=== PATIENT | male | born 1940 | race Caucasian/White ===

== ENCOUNTER 2018-03-03 20:17 | Outpatient (REF) | payer MEDICARE, SELFPAY ==
[2018-03-03 22:10] LABS: Digoxin 0.74 ng/mL (0.90-2.00)
== END 2018-03-03 20:18 ==
LOC: NCHCN 20:17
PROVIDERS: PCP Internal Medicine; Visit Provider Family Medicine
DX: I48.91 Unspecified atrial fibrillation (principal); Z79.899 Other long term (current) drug therapy
CPT/HCPCS: 80162

== ENCOUNTER → 2018-05-14 12:31 | Outpatient (BNVA) | payer MEDICARE, SELFPAY | PROVIDERS: PCP Internal Medicine; Visit Provider Internal Medicine Cardiovascular Disease | DX: I48.2 Chronic atrial fibrillation (principal); Z95.2 Presence of prosthetic heart valve; I42.9 Cardiomyopathy, unspecified; G47.33 Obstructive sleep apnea (adult) (pediatric); I08.2 Rheumatic disorders of both aortic and tricuspid valves; E11.9 Type 2 diabetes mellitus without complications; Z79.84 Long term (current) use of oral hypoglycemic drugs; I10 Essential (primary) hypertension | CPT/HCPCS: 99214 ==

== ENCOUNTER 2018-07-15 10:35 | Outpatient (REF) | payer MEDICARE, SELFPAY ==
[2018-07-15 21:45] LABS: Abs Immature Grans 0.02 k/cumm (0.0-0.09); Absolute Basophil Count 0.02 k/cumm (0.0-0.2); Absolute Eosinophil Count 0.16 k/cumm (0.0-0.7); Absolute Lymphocyte Count 0.96 k/cumm (1.2-3.4); Absolute Monocyte Count 0.58 k/cumm (0.11-0.7); Absolute Neutrophil Count 4.62 k/cumm (1.2-6.7); Basophils % 0.3; Eosinophils % 2.5; HCT 35.9 % (40.0-50.0); HGB 11.2 g/dL (13.5-17.5); Immature Grans % 0.3; Lymphocytes % 15.1; Mean Corp. HGB Concentration 31.2 g/dL (32.0-36.0); Mean Corpuscular Hemoglobin 28.7 pg (27.0-33.0); Mean Corpuscular Volume 92.1 fL (80-95); Mean Platelet Volume 12.3 fL (8.0-11.0); Monocytes % 9.1; Neutrophils % 72.7; Platelet Count 173 x1000/uL (130-400); White Blood Cell Count 6.36 k/cumm (4.4-10.8)
[2018-07-15 21:51] LABS: ALT 15 U/L (12-78); AST 13 U/L (15-37); Albumin 3.6 g/dL (3.4-5.0); Alkaline Phosphatase 115 U/L (46-116); Anion Gap 9.5 mmol/L (3-11); BUN 39 mg/dL (7-18); Bilirubin, Total 0.3 mg/dL (0.2-1.0); CO2 28.5 mmol/L (21.0-32.0); CREATININE 2.72 mg/dL (0.70-1.30); Calcium 8.5 mg/dL (8.5-10.1); Chloride 104 mmol/L (98-107); Estimated GFR 22.77 (mL/min/1.73m2); Glucose 118 mg/dL (70-100); Potassium 4.5 mmol/L (3.5-5.1); Sodium 142 mmol/L (136-145); Total Protein 7.2 g/dL (6.4-8.2)
[2018-07-15 22:37] LABS: Prothrombin Time 61.5 sec (9.3-11.0)
== END 2018-07-15 10:55 ==
LOC: NCHCN 10:35
PROVIDERS: PCP Internal Medicine; Visit Provider Internal Medicine
DX: C34.11 Malignant neoplasm of upper lobe, right bronchus or lung (principal); I48.91 Unspecified atrial fibrillation; Z79.01 Long term (current) use of anticoagulants; G31.84 Mild cognitive impairment of uncertain or unknown etiology
CPT/HCPCS: 80053; 85025; 85610

== ENCOUNTER 2018-07-19 10:44 | Outpatient (CLI) | payer MEDICARE, SELFPAY ==
[2018-07-19 11:19] LABS: INR 1.8 (1.0-3.5); Prothrombin Time 18.3 sec (9.3-11.0)
== END 2018-07-19 11:04 ==
PROVIDERS: PCP Internal Medicine; Visit Provider Internal Medicine
DX: I48.91 Unspecified atrial fibrillation (principal); Z79.01 Long term (current) use of anticoagulants
CPT/HCPCS: 36415; 85610

== ENCOUNTER 2018-07-20 16:02 | Outpatient (REF) | payer MEDICARE, SELFPAY ==
[2018-07-20 21:13] LABS: Bilirubin Negative (Negative); Blood Small (Negative); Clarity Clear; Glucose Negative (Negative); Ketones Negative (Negative); Leukocyte Esterase Negative (Negative); Nitrite Negative (Negative); Specific Gravity 1.025 (1.005-1.025); Urobilinogen 0.2 EU/dL (Up TO 0.2); pH 5.5 (5-8)
[2018-07-20 21:27] LABS: Anion Gap 8.3 mmol/L (3-11); BUN 38 mg/dL (7-18); CO2 30.7 mmol/L (21.0-32.0); CREATININE 2.84 mg/dL (0.70-1.30); Calcium 8.9 mg/dL (8.5-10.1); Chloride 102 mmol/L (98-107); Estimated GFR 21.67 (mL/min/1.73m2); Glucose 93 mg/dL (70-100); Potassium 4.4 mmol/L (3.5-5.1); Sodium 141 mmol/L (136-145)
[2018-07-20 21:46] LABS: COMMENT (LAB VIEW ONLY) 73.03 mg/dL
[2018-07-20 21:55] LABS: WBC 0-2 HPF (0-5)
[2018-07-20 21:56] LABS: Bacteria Rare HPF (Negative); Crystals Negative HPF (Negative); Epithelial Cells Rare HPF (Negative); Mucus Trace (Negative); Other Cells Rare Yeast (Negative); RBC 0-2 (0-2)
[2018-07-20 21:57] LABS: C & S Indicated? Yes; Casts 0-2 Hyaline LPF (Negative)
== END 2018-07-20 16:22 ==
LOC: NCHCN 16:02
PROVIDERS: PCP Internal Medicine; Visit Provider Internal Medicine
DX: I10 Essential (primary) hypertension (principal); N18.9 Chronic kidney disease, unspecified
CPT/HCPCS: 80048; 81003; 81015; 82043; 82570; 87086

== ENCOUNTER 2018-08-05 11:29 | Outpatient (REF) | payer MEDICARE, SELFPAY ==
[2018-08-05 22:24] LABS: PROTEIN 384.4 mg/dL
[2018-08-05 22:25] LABS: COMMENT (LAB VIEW ONLY) 90.59 mg/dL; Prot/Crea Ur Ratio 4.24
== END 2018-08-05 11:49 ==
LOC: NCHCN 11:29
PROVIDERS: PCP Internal Medicine; Visit Provider Internal Medicine
DX: N18.4 Chronic kidney disease, stage 4 (severe) (principal)
CPT/HCPCS: 82565; 84156

== ENCOUNTER 2018-10-07 12:10 | Outpatient (REF) | payer MEDICARE, SELFPAY ==
[2018-10-07 22:16] LABS: TSH (W/Ref FT4) 0.56 uIU/mL (0.358-3.74)
== END 2018-10-07 12:30 ==
LOC: NCHCN 12:10
PROVIDERS: PCP Internal Medicine; Visit Provider Internal Medicine
DX: I10 Essential (primary) hypertension (principal); I48.91 Unspecified atrial fibrillation; K59.00 Constipation, unspecified
CPT/HCPCS: 84443

== ENCOUNTER 2018-10-15 21:46 | Outpatient (REF) | payer MEDICARE, SELFPAY ==
[2018-10-15 22:01] LABS: Abs Immature Grans 0.03 k/cumm (0.0-0.09); Absolute Basophil Count 0.01 k/cumm (0.0-0.2); Absolute Eosinophil Count 0.11 k/cumm (0.0-0.7); Absolute Lymphocyte Count 0.58 k/cumm (1.2-3.4); Absolute Monocyte Count 0.57 k/cumm (0.11-0.7); Absolute Neutrophil Count 5.29 k/cumm (1.2-6.7); Basophils % 0.2; Eosinophils % 1.7; HCT 32.8 % (40.0-50.0); Immature Grans % 0.5; Lymphocytes % 8.8; Mean Corp. HGB Concentration 30.5 g/dL (32.0-36.0); Mean Corpuscular Hemoglobin 26.4 pg (27.0-33.0); Mean Corpuscular Volume 86.5 fL (80-95); Mean Platelet Volume 12.2 fL (8.0-11.0); Monocytes % 8.6; Neutrophils % 80.2; Platelet Count 287 x1000/uL (130-400); RBC 3.79 m/cumm (4.50-6.00); RBC Distribution Width 15.2 % (11.8-14.1); White Blood Cell Count 6.59 k/cumm (4.4-10.8)
== END 2018-10-15 22:06 ==
LOC: NCHCN 21:46
PROVIDERS: PCP Internal Medicine; Visit Provider Internal Medicine
DX: R53.83 Other fatigue (principal); D64.9 Anemia, unspecified; R68.89 Other general symptoms and signs
CPT/HCPCS: 85025

== ENCOUNTER 2018-10-16 14:11 | Outpatient (REF) | payer MEDICARE, SELFPAY ==
[2018-10-16 21:31] LABS: Reticulocyte 1.1 % (0.5-2.4)
[2018-10-16 21:39] LABS: Iron 32 ug/dL (50-175); Total Iron Binding Capacity 169 ug/dL (250-450); Transferrin Sat 19 % (20-55)
[2018-10-16 21:59] LABS: Ferritin 403 ng/mL (8-388)
== END 2018-10-16 14:31 ==
LOC: NCHCN 14:11
PROVIDERS: PCP Internal Medicine; Visit Provider Internal Medicine
DX: R53.83 Other fatigue (principal); D64.9 Anemia, unspecified; R68.89 Other general symptoms and signs
CPT/HCPCS: 82728; 82746; 83540; 83550; 85045

== ENCOUNTER 2018-11-13 21:23 | Outpatient (REF) | payer MEDICARE, SELFPAY ==
[2018-11-13 22:07] LABS: Anion Gap 11.1 mmol/L (3-11); BUN 47 mg/dL (7-18); CO2 24.9 mmol/L (21.0-32.0); Calcium 8.3 mg/dL (8.5-10.1); Chloride 106 mmol/L (98-107); Estimated GFR 15.26 (mL/min/1.73m2); Glucose 146 mg/dL (70-100); Potassium 5.2 mmol/L (3.5-5.1); Sodium 142 mmol/L (136-145); Vitamin B12 569 pg/mL (193-986)
[2018-11-13 22:25] LABS: CREATININE 3.84 mg/dL (0.70-1.30)
[2018-11-16 11:51] LABS: Syphilis Serology (RPR) Negative (Negative)
== END 2018-11-13 21:43 ==
LOC: NCHCN 21:23
PROVIDERS: PCP Internal Medicine; Visit Provider Internal Medicine
DX: F03.90 Unspecified dementia, unspecified severity, without behavioral disturbance, psychotic disturbance, mood disturbance, and anxiety (principal); N18.4 Chronic kidney disease, stage 4 (severe)
CPT/HCPCS: 80048; 82607; 86592

== ENCOUNTER → 2018-11-19 12:57 | Outpatient (BNVA) | payer MEDICARE, SELFPAY | PROVIDERS: PCP Internal Medicine; Visit Provider Internal Medicine Cardiovascular Disease | DX: I48.2 Chronic atrial fibrillation (principal); I42.9 Cardiomyopathy, unspecified; G47.33 Obstructive sleep apnea (adult) (pediatric); I12.9 Hypertensive chronic kidney disease with stage 1 through stage 4 chronic kidney disease, or unspecified chronic kidney disease; I08.2 Rheumatic disorders of both aortic and tricuspid valves; I27.20 Pulmonary hypertension, unspecified; N18.4 Chronic kidney disease, stage 4 (severe); E11.22 Type 2 diabetes mellitus with diabetic chronic kidney disease; J44.9 Chronic obstructive pulmonary disease, unspecified | CPT/HCPCS: 99214 ==

== ENCOUNTER 2018-12-17 12:46 | Outpatient (REF) | payer MEDICARE, SELFPAY ==
[2018-12-18 11:46] LABS: Anion Gap 9.9 mmol/L (3-11); CO2 27.1 mmol/L (21.0-32.0); Calcium 9.2 mg/dL (8.5-10.1); Chloride 102 mmol/L (98-107); Estimated GFR 12.11 (mL/min/1.73m2); Glucose 90 mg/dL (70-100); Potassium 5.9 mmol/L (3.5-5.1); Sodium 139 mmol/L (136-145)
[2018-12-18 11:54] LABS: BUN 102 mg/dL (7-18)
[2018-12-18 11:55] LABS: CREATININE 4.69 mg/dL (0.70-1.30)
== END 2018-12-17 13:06 ==
LOC: NCHCN 12:46
PROVIDERS: PCP Internal Medicine; Visit Provider Internal Medicine
DX: R09.02 Hypoxemia (principal); I50.9 Heart failure, unspecified
CPT/HCPCS: 80048

== ENCOUNTER 2019-03-18 16:50 | Outpatient (REF) | payer MEDICARE, SELFPAY ==
[2019-03-18 21:02] LABS: INR 3.6 (0.9-1.1); Prothrombin Time 36.8 sec (9.3-11.0)
[2019-03-18 21:03] LABS: Anion Gap 12.3 mmol/L (3-11); BUN 64 mg/dL (7-18); CO2 25.7 mmol/L (21.0-32.0); CREATININE 3.14 mg/dL (0.70-1.30); Calcium 8.7 mg/dL (8.5-10.1); Chloride 104 mmol/L (98-107); Estimated GFR 19.25 (mL/min/1.73m2); Glucose 125 mg/dL (70-100); Potassium 4.6 mmol/L (3.5-5.1); Sodium 142 mmol/L (136-145)
== END 2019-03-18 17:10 ==
LOC: NCHCN 16:50
PROVIDERS: PCP Internal Medicine; Visit Provider Internal Medicine
DX: I48.91 Unspecified atrial fibrillation (principal)
CPT/HCPCS: 80048; 85610

== ENCOUNTER 2019-05-14 12:52 | Outpatient (REF) | payer MEDICARE, SELFPAY ==
[2019-05-14 21:44] LABS: BUN 43 mg/dL (7-18); CREATININE 3.26 mg/dL (0.70-1.30); Calcium 8.9 mg/dL (8.5-10.1); Chloride 104 mmol/L (98-107); Estimated GFR 18.43 (mL/min/1.73m2); Glucose 127 mg/dL (70-100); Potassium 4.6 mmol/L (3.5-5.1); Sodium 144 mmol/L (136-145)
== END 2019-05-14 13:12 ==
LOC: NCHCN 12:52
PROVIDERS: PCP Internal Medicine; Visit Provider Internal Medicine
DX: I10 Essential (primary) hypertension (principal); I50.9 Heart failure, unspecified
CPT/HCPCS: 80048

== ENCOUNTER 2019-05-26 01:58 | Outpatient (CLI) | payer MEDICARE, SELFPAY ==
--- NOTE | 2019-05-26 13:33 | DI.US_ITS ---
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 Severe increased septal thickness. Left ventric ular systolic function is mildly decreased. There is mild global hypokinesis. LVEF is 45-50%. Right Ventricle : Right ventricle is dilated (5.6cm). Right ventricle is very mildly hypokinetic. Atria : Left atrium is severely dilated. Right atrium is severely dilated. Aortic Valve : Aortic valve is probably trileaflet. The Aortic valve is sclerotic. Mild to moderate a ortic regurgitation. Mild aortic stenosis. Mitral Valve : The mitral valve is moderately thickened. There is mitral annular calcification. Moder ate mitral regurgitation. Mild mitral stenosis at a HR of 83. Annuloplasty ring is noted in the ziggy l position. Tricuspid Valve : The tricuspid valve leaflets are thickened, but open well. There is no tricuspid va lve stenosis. Moderate tricuspid regurgitation. No systolic reversal of flow in IVC. Pulmonic Valve : Pulmonic valve is not well visualized. Great Vessels : The IVC is dilated with less than 50% collapse. The RVSP is estimated to be 50-60mmHg . No prior echocardiogram available for comparison. Wall motion Left Ventricle The left ventricle is normal size. Left ventricular systolic function is mildly decreased. Severe Sep alejandra thickness (1.9). There is mild global hypokinesis. Diastolic function is indeterminate. LVEF is 4 5-50%. Right Ventricle Right ventricle is dilated (5.6cm). Right ventricle is very mildly hypokinetic. Atria Left atrium is severely dilated. Right atrium is severely dilated. Aortic Valve Aortic valve is probably trileaflet. The Aortic valve is sclerotic. Mild aortic stenosis. Mild to mod erate aortic regurgitation. Mitral Valve The mitral valve is moderately thickened. mitral annular calcification. Mild mitral stenosis. Moderat e mitral regurgitation. Annuloplasty ring is noted in the mitral position. Tricuspid Valve The tricuspid valve leaflets are thickened, but open well. There is no tricuspid valve stenosis. Mode rate tricuspid regurgitation. No systolic reversal of flow in IVC. Pulmonic Valve Pulmonic valve is not well visualized. Great Vessels The aortic root is normal in size. The ascending aorta is mildly dilated. The IVC is dilated with les s than 50% collapse. The RVSP is estimated to be 50-60mmHg Pericardium There is no pericardial effusion. cannot exclude pleural effusion 2D Dimensions IVSd 1.96 cm M: 0.6-1.2 LV EDV A2C 120.00 mL PWd 1.22 cm M: 0.6 - 1.2 LV EDV A4C 163.10 mL LVDd 5.33 cm M: 4.2 - 5.9 LA Volume Index A2C 69.34 mL/m2 LVDs 4.05 cm M: 2.5 - 4.0 LA Volume Index A4C 85.95 mL/m2 Aortic Root 3.59 cm M: 3.1 - 3.7 LA Volume Index Biplane 79.35 mL/m2 RVID Base (AP4) 5.65 cm (M/F) 2.5-4.1 LA Area A4C 41.35 cm2 RA Area A4C 36.17 cm2 LA Area A2C 36.14 cm2 LVOT 2.17 cm (M/F) 1.5-2.5 EF AP4 55.12 % Ascending Aorta 3.89 cm M: 2.6 - 3.4 EF AP2 52.67 % LVEF (Teich) 47.47 % EF BP 51.68 % LVEF (Almeida's) 51.68 % M: 52 - 72 IVC 2.84 cm LV Volume 106.67 mL M: 62 - 150 LV Volume Index 52.28 mL/m2 M: 34 - 74 FS 24.05 % LV Diastology E Decel Time 252.00 (160-240 msec) MED E' 0.09 (>0.07 m/s) LV E/e MED 19.00 (<14) Aortic Valve LVOT Area 3.71 cm2 LVOT Peak Oswald. 0.91 m/s LVOT Mean Oswald. 0.68 m/s LVOT Peak Gr. 3.34 mmHg LAURA Vmax Index 0.80 cm2/m2 LVOT Mean Gr. 2.00 mmHg LVOT VTI 0.19 m LAURA Mean Oswald. Index 0.80 cm2/m2 AoV Peak Oswald. 2.08 (0.5-1.3 m/s) AoV Mean Oswald. 1.53 m/s AI PHT 328.93 msec AO Peak GR. 17.35 mmHg AO Mean GR. 10.21 (<5 mmHg) AO VTI 0.45 (0.18-0.25 m) VTI Ratio 0.42 AV Regurg Decel. 1134.24 msec LAURA (VTI) 1.55 (2.5-4.5 cm2) LAURA (VTI) Index 0.76 cm/m2 Mitral Valve MV E Max Oswald. 1.64 (0.4-1.3 m/s) MVA VTI 5.39 (4.0-6.0 cm2) MV Decel. Time 251.92 (160-240 msec) MV Peak Gr. 13.40 mmHg MV Mean Gr. 4.70 (<2mmHg) MV Regurg Volume 59.68 mL MV PHT 73.06 msec MV RF 46.38 % MVA PHT 3.01 cm2 Pulmonary Valve PV Peak Velocity 0.89 (0.5-1.5 m/s) [place] End VMAX 118.96 cm/s Tricuspid Valve TR P. Velocity 3.44 m/s TV Regurg Vmax 3.44 m/s RAP Estimate 10.00 mmHg RVSP 57.00 mmHg TR P. Gradient 47.38 mmHg
== END 2019-05-26 02:18 ==
PROVIDERS: PCP Internal Medicine; Visit Provider Internal Medicine Cardiovascular Disease
DX: I07.1 Rheumatic tricuspid insufficiency (principal); I51.7 Cardiomegaly; I48.91 Unspecified atrial fibrillation; I10 Essential (primary) hypertension
CPT/HCPCS: 93306

== ENCOUNTER 2019-06-14 16:52 | Outpatient (REF) | payer MEDICARE, SELFPAY ==
[2019-06-14 21:55] LABS: HCT 33.8 % (40.0-50.0); HGB 10.4 g/dL (13.5-17.5); Mean Corp. HGB Concentration 30.8 g/dL (32.0-36.0); Mean Corpuscular Hemoglobin 28.1 pg (27.0-33.0); Mean Corpuscular Volume 91.4 fL (80-95); Mean Platelet Volume 11.9 fL (8.0-11.0); Platelet Count 164 x1000/uL (130-400); RBC Distribution Width 16.7 % (11.8-14.1); White Blood Cell Count 5.98 k/cumm (4.4-10.8)
[2019-06-14 22:47] LABS: Iron 40 ug/dL (65-175)
[2019-06-15 00:07] LABS: Anion Gap 14.6 mmol/L (3-11); BUN 61 mg/dL (7-18); CO2 27.4 mmol/L (21.0-32.0); Calcium 8.9 mg/dL (8.5-10.1); Chloride 103 mmol/L (98-107); Estimated GFR 15.59 (mL/min/1.73m2); Ferritin 330 ng/mL (26-388); Glucose 143 mg/dL (74-106); Potassium 3.8 mmol/L (3.5-5.1); Sodium 145 mmol/L (136-145)
[2019-06-15 00:10] LABS: CREATININE 3.77 mg/dL (0.70-1.30)
[2019-06-15 00:29] LABS: NT-proBNP 4469 pg/mL (<300)
== END 2019-06-14 17:12 ==
LOC: NCHCN 16:52
PROVIDERS: PCP Internal Medicine; Visit Provider Internal Medicine
DX: I50.9 Heart failure, unspecified; D64.9 Anemia, unspecified; R06.00 Dyspnea, unspecified
CPT/HCPCS: 80048; 85027; 82728; 83540; 83880

== ENCOUNTER 2019-06-18 13:54 | Outpatient (REF) | payer MEDICARE, SELFPAY ==
[2019-06-18 20:30] LABS: BUN 62 mg/dL (7-18); Calcium 8.4 mg/dL (8.5-10.1); Chloride 103 mmol/L (98-107); Estimated GFR 15.93 (mL/min/1.73m2); Glucose 160 mg/dL (74-106); Potassium 3.7 mmol/L (3.5-5.1); Sodium 144 mmol/L (136-145)
== END 2019-06-18 14:14 ==
LOC: NCHCN 13:54
PROVIDERS: PCP Internal Medicine; Visit Provider Internal Medicine
DX: I10 Essential (primary) hypertension (principal); E11.9 Type 2 diabetes mellitus without complications
CPT/HCPCS: 80048

== ENCOUNTER 2019-07-01 15:57 | Outpatient (REF) | payer MEDICARE, SELFPAY ==
[2019-07-01 21:18] LABS: ALT 16 U/L (16-63); AST 10 U/L (15-37); Albumin 4.2 g/dL (3.4-5.0); Alkaline Phosphatase 132 U/L (46-116); Anion Gap 7.5 mmol/L (3-11); BUN 75 mg/dL (7-18); Bilirubin, Total 0.5 mg/dL (0.2-1.0); CO2 33.5 mmol/L (21.0-32.0); Calcium 8.4 mg/dL (8.5-10.1); Chloride 101 mmol/L (98-107); Glucose 124 mg/dL (74-106); Potassium 4.6 mmol/L (3.5-5.1); Sodium 142 mmol/L (136-145)
[2019-07-01 21:31] LABS: CREATININE 3.86 mg/dL (0.70-1.30); Estimated GFR 15.17 (mL/min/1.73m2)
== END 2019-07-01 16:17 ==
LOC: NCHCN 15:57
PROVIDERS: PCP Internal Medicine; Visit Provider Family Medicine
DX: N18.4 Chronic kidney disease, stage 4 (severe) (principal); I50.32 Chronic diastolic (congestive) heart failure
CPT/HCPCS: 80053

== ENCOUNTER 2019-07-29 14:19 | Outpatient (REF) | payer MEDICARE, SELFPAY ==
[2019-07-29 22:35] LABS: Anion Gap 10.5 mmol/L (3-11); BUN 67 mg/dL (7-18); CO2 30.5 mmol/L (21.0-32.0); CREATININE 3.49 mg/dL (0.70-1.30); Calcium 8.4 mg/dL (8.5-10.1); Chloride 100 mmol/L (98-107); Estimated GFR 17.04 (mL/min/1.73m2); Glucose 128 mg/dL (74-106); Potassium 4.3 mmol/L (3.5-5.1); Sodium 141 mmol/L (136-145)
== END 2019-07-29 14:39 ==
LOC: NCHCN 14:19
PROVIDERS: PCP Internal Medicine; Visit Provider Internal Medicine
DX: N18.4 Chronic kidney disease, stage 4 (severe) (principal)
CPT/HCPCS: 80048

== ENCOUNTER → 2019-09-13 14:26 | Outpatient (BNVA) | payer MEDICARE, SELFPAY | PROVIDERS: PCP Internal Medicine; Referring Provider Internal Medicine; Visit Provider Internal Medicine Cardiovascular Disease | DX: I48.20 Chronic atrial fibrillation, unspecified; I08.0 Rheumatic disorders of both mitral and aortic valves; I10 Essential (primary) hypertension; I42.9 Cardiomyopathy, unspecified; J44.9 Chronic obstructive pulmonary disease, unspecified; Z87.891 Personal history of nicotine dependence; Z99.81 Dependence on supplemental oxygen | CPT/HCPCS: 99204; 99215 ==

== ENCOUNTER 2019-09-21 09:45 | Outpatient (REF) | payer MEDICARE, SELFPAY ==
[2019-09-21 21:55] LABS: Anion Gap 7.4 mmol/L (3-11); BUN 55 mg/dL (7-18); CO2 30.6 mmol/L (21.0-32.0); CREATININE 2.94 mg/dL (0.70-1.30); Calcium 8.6 mg/dL (8.5-10.1); Chloride 104 mmol/L (98-107); Estimated GFR 20.77 (mL/min/1.73m2); Glucose 94 mg/dL (74-106); Potassium 4.5 mmol/L (3.5-5.1); Sodium 142 mmol/L (136-145)
== END 2019-09-21 10:05 ==
LOC: NCHCN 09:45
PROVIDERS: PCP Internal Medicine; Visit Provider Internal Medicine
DX: N18.4 Chronic kidney disease, stage 4 (severe) (principal)
CPT/HCPCS: 80048

== ENCOUNTER 2019-11-30 11:09 | Outpatient (REF) | payer MEDICARE, SELFPAY ==
[2019-11-30 21:57] LABS: Abs Immature Grans 0.01 k/cumm (0.0-0.09); Absolute Basophil Count 0.02 k/cumm (0.0-0.2); Absolute Eosinophil Count 0.16 k/cumm (0.0-0.7); Absolute Lymphocyte Count 0.57 k/cumm (1.2-3.4); Absolute Monocyte Count 0.44 k/cumm (0.11-0.7); Absolute Neutrophil Count 4.33 k/cumm (1.2-6.7); Anion Gap 7.9 mmol/L (3-11); BUN 49 mg/dL (7-18); Basophils % 0.4; CO2 31.1 mmol/L (21.0-32.0); CREATININE 3.28 mg/dL (0.70-1.30); Calcium 8.9 mg/dL (8.5-10.1); Chloride 101 mmol/L (98-107); Eosinophils % 2.9; Estimated GFR 18.26 (mL/min/1.73m2); Ferritin 379 ng/mL (26-388); Glucose 87 mg/dL (74-106); HCT 35.8 % (40.0-50.0); HGB 11.2 g/dL (13.5-17.5); Immature Grans % 0.2 %; Lymphocytes % 10.3; Mean Corp. HGB Concentration 31.3 g/dL (32.0-36.0); Mean Corpuscular Volume 86.3 fL (80-95); Mean Platelet Volume 12.2 fL (8.0-11.0); Neutrophils % 78.2; Platelet Count 169 x1000/uL (130-400); Potassium 4.6 mmol/L (3.5-5.1); RBC 4.15 m/cumm (4.50-6.00); RBC Distribution Width 18.1 % (11.8-14.1); Sodium 140 mmol/L (136-145); White Blood Cell Count 5.53 k/cumm (4.4-10.8)
== END 2019-11-30 11:29 ==
LOC: NCHCN 11:09
PROVIDERS: PCP Internal Medicine; Visit Provider Internal Medicine
DX: D64.9 Anemia, unspecified (principal); N18.4 Chronic kidney disease, stage 4 (severe); R09.02 Hypoxemia
CPT/HCPCS: 80048; 82728; 85025

== ENCOUNTER → 2020-03-13 14:14 | Outpatient (BNVA) | payer MEDICARE, SELFPAY | PROVIDERS: PCP Internal Medicine; Referring Provider Internal Medicine; Visit Provider Internal Medicine Cardiovascular Disease | DX: I35.0 Nonrheumatic aortic (valve) stenosis (principal); Z82.49 Family history of ischemic heart disease and other diseases of the circulatory system; I27.20 Pulmonary hypertension, unspecified; I48.20 Chronic atrial fibrillation, unspecified; I12.9 Hypertensive chronic kidney disease with stage 1 through stage 4 chronic kidney disease, or unspecified chronic kidney disease; J44.9 Chronic obstructive pulmonary disease, unspecified; N18.9 Chronic kidney disease, unspecified | CPT/HCPCS: 99214 ==

== ENCOUNTER 2020-04-03 20:02 | Outpatient (REF) | payer MEDICARE, SELFPAY ==
[2020-04-03 22:13] LABS: BUN 54 mg/dL (7-18); CREATININE 2.89 mg/dL (0.70-1.30); Calcium 8.4 mg/dL (8.5-10.1); Chloride 100 mmol/L (98-107); Estimated GFR 21.13 (mL/min/1.73m2); Glucose 89 mg/dL (74-106); Potassium 4.1 mmol/L (3.5-5.1); Sodium 138 mmol/L (136-145)
== END 2020-04-03 20:22 ==
LOC: NCHCN 20:02
PROVIDERS: PCP Internal Medicine; Visit Provider Internal Medicine
DX: N18.4 Chronic kidney disease, stage 4 (severe) (principal)
CPT/HCPCS: 80048

== ENCOUNTER 2020-06-02 10:49 | Outpatient (REF) | payer MEDICARE, SELFPAY ==
[2020-06-02 22:15] LABS: Abs Immature Grans 0.02 10^3/uL (0.0-0.06); Absolute Basophil Count 0.06 10^3/uL (0.0-0.2); Absolute Lymphocyte Count 1.02 10^3/uL (1.2-3.4); Absolute Monocyte Count 0.56 10^3/uL (0.1-0.8); Absolute Neutrophil Count 5.69 10^3/uL (1.2-6.7); Basophils % 0.8; Eosinophils % 1.3; HCT 38.1 % (40.0-50.0); HGB 11.7 g/dL (13.5-17.5); Immature Grans % 0.3; Lymphocytes % 13.7; MCH 26.8 pg (27.0-33.0); MCHC 30.7 % (32.0-36.0); MCV 87.2 fL (80-95); MPV 12.4 fL (8.0-11.0); Monocytes % 7.5; Neutrophils % 76.4; Nucleated RBC 0 %; Platelet Count 166 10^3/uL (130-400); RBC 4.37 10^6/uL (4.36-5.78); RDW 17.2 % (11.8-14.1); RDW-SD 54.4 fL; WBC 7.45 10^3/uL (4.4-10.8)
[2020-06-02 22:58] LABS: Anion Gap 14.2 mmol/L (3-11); BUN 40 mg/dL (7-18); CO2 24.8 mmol/L (21.0-32.0); CREATININE 2.56 mg/dL (0.70-1.30); Calcium 8.3 mg/dL (8.5-10.1); Chloride 103 mmol/L (98-107); Glucose 86 mg/dL (74-106); Potassium 4.1 mmol/L (3.5-5.1); Sodium 142 mmol/L (136-145)
[2020-06-02 23:58] LABS: Prothrombin Time 116.4 sec (9.3-11.0)
[2020-06-02 23:59] LABS: INR 12.4 (0.9-1.1)
== END 2020-06-02 11:09 ==
LOC: NCHCN 10:49
PROVIDERS: PCP Internal Medicine; Visit Provider Internal Medicine
DX: I48.91 Unspecified atrial fibrillation (principal); N18.4 Chronic kidney disease, stage 4 (severe)
CPT/HCPCS: 80048; 85025; 85610

== ENCOUNTER 2021-02-09 21:23 | Outpatient (REF) | payer MEDICARE, SELFPAY ==
[2021-02-09 21:57] LABS: Anion Gap 6.4 mmol/L (3-11); BUN 70 mg/dL (7-18); CO2 28.6 mmol/L (21.0-32.0); CREATININE 3.3 mg/dL (0.70-1.30); Calcium 8.6 mg/dL (8.5-10.1); Chloride 105 mmol/L (98-107); Estimated GFR 18.08 (mL/min/1.73m2); Glucose 86 mg/dL (74-106); Potassium 4.3 mmol/L (3.5-5.1); Sodium 140 mmol/L (136-145)
[2021-02-12 05:07] LABS: Vitamin D 25 Total 37.6 ng/mL (30-100)
== END 2021-02-09 21:24 | disposition home or self-care (01) ==
LOC: NCHCN 21:23
PROVIDERS: PCP Internal Medicine; Visit Provider Internal Medicine
DX: E55.9 Vitamin D deficiency, unspecified (principal); N18.4 Chronic kidney disease, stage 4 (severe)
CPT/HCPCS: 80048; 82306

== ENCOUNTER 2021-05-30 14:55 | Outpatient (REF) | payer MEDICARE, SELFPAY ==
[2021-05-30 21:36] LABS: HCT 36.3 % (40.0-50.0); HGB 11.3 g/dL (13.5-17.5); MCH 28.3 pg (27.0-33.0); MCHC 31.1 % (32.0-36.0); MCV 90.8 fL (80-95); Platelet Count 105 10^3/uL (130-400); RDW 15.4 % (11.8-14.1); WBC 5.42 10^3/uL (4.4-10.8)
[2021-05-31 08:28] LABS: Anion Gap 12.6 mmol/L (3-11); BUN 58 mg/dL (7-18); CO2 24.4 mmol/L (21.0-32.0); CREATININE 3.1 mg/dL (0.70-1.30); Calcium 8.6 mg/dL (8.5-10.1); Chloride 104 mmol/L (98-107); Estimated GFR 19.44 (mL/min/1.73m2); Glucose 102 mg/dL (74-106); Potassium 4.7 mmol/L (3.5-5.1); Sodium 141 mmol/L (136-145)
[2021-06-01 10:05] LABS: Parathyroid Hormone,Intact 411 pg/mL (19-88)
== END 2021-05-30 14:56 | disposition home or self-care (01) ==
LOC: NCHCN 14:55
PROVIDERS: PCP Internal Medicine; Visit Provider Internal Medicine
DX: N18.4 Chronic kidney disease, stage 4 (severe) (principal)
CPT/HCPCS: 80048; 85027; 83970

== ENCOUNTER 2021-07-25 17:20 | Outpatient (REF) | payer MEDICARE, SELFPAY ==
[2021-07-25 15:56] LABS: INR 2.5 (0.9-1.1); Prothrombin Time 24.4 sec (9.3-11.0)
[2021-07-25 16:07] LABS: Anion Gap 11.1 mmol/L (3-11); BUN 50 mg/dL (7-18); CO2 26.9 mmol/L (21.0-32.0); CREATININE 2.9 mg/dL (0.70-1.30); Calcium 8.9 mg/dL (8.5-10.1); Chloride 104 mmol/L (98-107); Estimated GFR 20.99 (mL/min/1.73m2); Glucose 100 mg/dL (74-106); Potassium 4.6 mmol/L (3.5-5.1); Sodium 142 mmol/L (136-145)
[2021-07-25 16:40] LABS: PHOSPHORUS 4.2 mg/dL (2.6-4.7)
== END 2021-07-25 17:21 | disposition home or self-care (01) ==
LOC: NCHCN 17:20
PROVIDERS: PCP Internal Medicine; Visit Provider Internal Medicine
DX: I48.91 Unspecified atrial fibrillation (principal); N18.4 Chronic kidney disease, stage 4 (severe)
CPT/HCPCS: 80048; 84100; 85610

== ENCOUNTER 2022-06-03 18:01 | Outpatient (REF) | payer MEDICARE, SELFPAY | END 2022-06-03 18:02 | disposition home or self-care (01) | LOC: NCHCN 18:01 | PROVIDERS: PCP Internal Medicine; Visit Provider Nurse Practitioner Family | DX: R30.0 Dysuria (principal) | CPT/HCPCS: 87086 ==

== ENCOUNTER 2022-07-29 15:03 | Outpatient (REF) | payer MEDICARE, OTHER, SELFPAY ==
[2022-07-29 15:23] LABS: Prothrombin Time 39.2 sec (9.3-11.0)
[2022-07-29 15:27] LABS: INR 4.3 (0.9-1.1)
== END 2022-07-29 15:04 | disposition home or self-care (01) ==
LOC: NCHCN 15:03
PROVIDERS: PCP Internal Medicine; Visit Provider Internal Medicine
DX: Z79.01 Long term (current) use of anticoagulants (principal); I48.91 Unspecified atrial fibrillation; Z98.890 Other specified postprocedural states
CPT/HCPCS: 85610

== ENCOUNTER 2022-09-27 14:36 | Outpatient (REF) | payer MEDICARE, OTHER, SELFPAY ==
[2022-09-27 21:53] LABS: HCT 33.2 % (40.0-50.0); HGB 10.7 g/dL (13.5-17.5); MCH 29.4 pg (27.0-33.0); MCHC 32.2 % (32.0-36.0); MCV 91 fL (80-95); MPV 12.1 fL (8.0-11.0); Platelet Count 139 10^3/uL (130-400); RBC 3.64 10^6/uL (4.36-5.78); RDW 14.6 % (11.8-14.1); WBC 5.99 10^3/uL (4.4-10.8)
[2022-09-27 22:00] LABS: Anion Gap 10.5 mmol/L (3-11); BUN 60 mg/dL (7-18); CO2 28.5 mmol/L (21.0-32.0); CREATININE 3.2 mg/dL (0.70-1.30); Calcium 8.8 mg/dL (8.5-10.1); Chloride 103 mmol/L (98-107); Estimated GFR 18.61 (mL/min/1.73m2); Glucose 97 mg/dL (74-106); Potassium 4.2 mmol/L (3.5-5.1); Sodium 142 mmol/L (136-145)
[2022-09-27 22:05] LABS: Iron 43 ug/dL (65-175); Total Iron Binding Capacity 249 ug/dL (250-450); Transferrin Sat 17 % (20-55)
[2022-09-27 22:20] LABS: ALT 17 U/L (16-63); AST 14 U/L (15-37); Albumin 4.1 g/dL (3.4-5.0); Alkaline Phosphatase 133 U/L (46-116); Bilirubin, Total 0.5 mg/dL (0.2-1.0); Ferritin 418 ng/mL (26-388); Total Protein 7.5 g/dL (6.4-8.2)
[2022-09-27 22:29] LABS: Bilirubin, Direct 0.2 mg/dL (0.0-0.2)
== END 2022-09-27 14:37 | disposition home or self-care (01) ==
LOC: NCHCN 14:36
PROVIDERS: Internal Medicine Nephrology; PCP Internal Medicine; Visit Provider Internal Medicine
DX: D64.9 Anemia, unspecified (principal); R94.5 Abnormal results of liver function studies; N18.4 Chronic kidney disease, stage 4 (severe); I48.91 Unspecified atrial fibrillation; Z79.01 Long term (current) use of anticoagulants
CPT/HCPCS: 80048; 80076; 85027; 82728; 83540; 83550

== ENCOUNTER 2022-11-01 21:26 | Outpatient (REF) | payer MEDICARE, OTHER, SELFPAY ==
[2022-11-01 21:44] LABS: HCT 32.6 % (40.0-50.0); HGB 10.3 g/dL (13.5-17.5); MCHC 31.6 % (32.0-36.0); MCV 92 fL (80-95); MPV 11.5 fL (8.0-11.0); Platelet Count 174 10^3/uL (130-400); RBC 3.55 10^6/uL (4.36-5.78); RDW 15.4 % (11.8-14.1); WBC 6.56 10^3/uL (4.4-10.8)
[2022-11-01 21:51] LABS: PHOSPHORUS 4.6 mg/dL (2.6-4.7)
[2022-11-04 11:41] LABS: Parathyroid Hormone,Intact 267 pg/mL (19-88)
== END 2022-11-01 21:27 | disposition home or self-care (01) ==
LOC: LBN 21:26
PROVIDERS: PCP Internal Medicine; Visit Provider Internal Medicine Nephrology
DX: N18.4 Chronic kidney disease, stage 4 (severe) (principal); D63.1 Anemia in chronic kidney disease
CPT/HCPCS: 85027; 83970; 84100

== ENCOUNTER 2022-12-05 12:38 | Outpatient (REF) | payer MEDICARE, OTHER, SELFPAY ==
[2022-12-05 14:50] LABS: INR 3.4 (0.9-1.1)
== END 2022-12-05 12:39 | disposition home or self-care (01) ==
LOC: NCHCN 12:38
PROVIDERS: PCP Internal Medicine; Visit Provider Nurse Practitioner Family
DX: I48.20 Chronic atrial fibrillation, unspecified (principal); Z79.01 Long term (current) use of anticoagulants
CPT/HCPCS: 85610

== ENCOUNTER 2022-12-09 15:12 | Outpatient (REF) | payer MEDICARE, OTHER, SELFPAY ==
[2022-12-09 15:45] LABS: Anion Gap 7.9 mmol/L (3-11); BUN 57 mg/dL (7-18); CO2 27.1 mmol/L (21.0-32.0); CREATININE 3.5 mg/dL (0.70-1.30); Calcium 8.9 mg/dL (8.5-10.1); Chloride 105 mmol/L (98-107); Estimated GFR 16.61 (mL/min/1.73m2); Glucose 102 mg/dL (74-106); Potassium 3.9 mmol/L (3.5-5.1); Sodium 140 mmol/L (136-145)
== END 2022-12-09 15:13 | disposition home or self-care (01) ==
LOC: LBN 15:12
PROVIDERS: PCP Internal Medicine; Visit Provider Internal Medicine Nephrology
DX: N18.4 Chronic kidney disease, stage 4 (severe) (principal)
CPT/HCPCS: 80048

== ENCOUNTER 2023-01-02 11:52 | Outpatient (REF) | payer MEDICARE, OTHER, SELFPAY ==
[2023-01-02 14:48] LABS: Abs Immature Grans 0.07 10^3/uL (0.0-0.06); Absolute Basophil Count 0.06 10^3/uL (0.0-0.2); Absolute Eosinophil Count 0.16 10^3/uL (0.0-0.7); Absolute Monocyte Count 0.63 10^3/uL (0.1-0.8); Absolute Neutrophil Count 6.96 10^3/uL (1.2-6.7); Basophils % 0.7; Eosinophils % 1.9; HCT 29.9 % (40.0-50.0); HGB 9.5 g/dL (13.5-17.5); Immature Grans % 0.8; Lymphocytes % 8.2; MCH 28.2 pg (27.0-33.0); MCHC 31.8 % (32.0-36.0); MCV 89 fL (80-95); Monocytes % 7.3; Neutrophils % 81.1; RBC 3.37 10^6/uL (4.36-5.78); RDW 15.9 % (11.8-14.1); RDW-SD 51.3 fL; WBC 8.58 10^3/uL (4.4-10.8)
[2023-01-02 15:05] LABS: Diff Comment Diff Reviewed; RBC Morphology Normal
[2023-01-02 16:23] LABS: ALT 14 U/L (16-63); AST 20 U/L (15-37); Albumin 3.6 g/dL (3.4-5.0); Alkaline Phosphatase 160 U/L (46-116); Anion Gap 16.5 mmol/L (3-11); BUN 49 mg/dL (7-18); Bilirubin, Total 0.6 mg/dL (0.2-1.0); CO2 21.5 mmol/L (21.0-32.0); CREATININE 3.2 mg/dL (0.70-1.30); Calcium 9.1 mg/dL (8.5-10.1); Chloride 106 mmol/L (98-107); Estimated GFR 18.49 (mL/min/1.73m2); Glucose 88 mg/dL (74-106); NT-proBNP 25770 pg/mL (<300); Potassium 4.1 mmol/L (3.5-5.1); Sodium 144 mmol/L (136-145); Total Protein 8.2 g/dL (6.4-8.2)
== END 2023-01-02 11:53 | disposition home or self-care (01) ==
LOC: NCHCN 11:52
PROVIDERS: PCP Internal Medicine; Visit Provider Internal Medicine
DX: I50.32 Chronic diastolic (congestive) heart failure (principal); D64.9 Anemia, unspecified; R06.02 Shortness of breath
CPT/HCPCS: 80053; 83880; 85025

== ENCOUNTER 2023-05-09 20:07 | Outpatient (REF) | payer MEDICARE, OTHER, SELFPAY ==
[2023-05-09 21:04] LABS: HCT 31.9 % (40.0-50.0); MCH 29.2 pg (27.0-33.0); MCHC 31.3 % (32.0-36.0); MCV 93 fL (80-95); MPV 12.3 fL (8.0-11.0); Platelet Count 189 10^3/uL (130-400); RBC 3.43 10^6/uL (4.36-5.78); RDW 19.3 % (11.8-14.1); RDW-SD 63.1 fL; WBC 9.33 10^3/uL (4.4-10.8)
[2023-05-09 21:35] LABS: ALT 96 U/L (16-63); AST 74 U/L (15-37); Albumin 3.5 g/dL (3.4-5.0); Alkaline Phosphatase 146 U/L (46-116); Bilirubin, Total 0.6 mg/dL (0.2-1.0); Calcium 9.3 mg/dL (8.5-10.1); Chloride 100 mmol/L (98-107); Estimated GFR 10.33 (mL/min/1.73m2); Glucose 172 mg/dL (74-106); Potassium 4.3 mmol/L (3.5-5.1); Sodium 135 mmol/L (136-145); Total Protein 6.9 g/dL (6.4-8.2)
[2023-05-09 21:39] LABS: Iron 49 ug/dL (65-175); Total Iron Binding Capacity 234 ug/dL (250-450); Transferrin Sat 21 % (20-55)
[2023-05-09 21:50] LABS: BUN 111 mg/dL (7-18); CREATININE 5.2 mg/dL (0.70-1.30)
[2023-05-09 21:57] LABS: NT-proBNP > 35000 pg/mL (<300)
== END 2023-05-09 20:08 | disposition home or self-care (01) ==
LOC: NCHCN 20:07
PROVIDERS: PCP Internal Medicine; Visit Provider Family Medicine
DX: N18.4 Chronic kidney disease, stage 4 (severe) (principal); I50.32 Chronic diastolic (congestive) heart failure
CPT/HCPCS: 80053; 85027; 83540; 83550; 83880

== ENCOUNTER 2023-05-16 15:58 | Outpatient (REF) | payer MEDICARE, OTHER, SELFPAY ==
[2023-05-16 16:01] LABS: Anion Gap 9.3 mmol/L (3-11); CO2 25.7 mmol/L (21.0-32.0); Calcium 9.1 mg/dL (8.5-10.1); Chloride 101 mmol/L (98-107); Estimated GFR 15.05 (mL/min/1.73m2); Glucose 155 mg/dL (74-106); Potassium 3.9 mmol/L (3.5-5.1); Sodium 136 mmol/L (136-145)
[2023-05-16 16:11] LABS: BUN 94 mg/dL (7-18); CREATININE 3.8 mg/dL (0.70-1.30)
== END 2023-05-16 15:59 | disposition home or self-care (01) ==
LOC: NCHCN 15:58
PROVIDERS: PCP Internal Medicine; Visit Provider Family Medicine
DX: N18.4 Chronic kidney disease, stage 4 (severe) (principal)
CPT/HCPCS: 80048